=== PATIENT | male | born 1960 | race American Indian/Alaskan Native ===

== ENCOUNTER 2021-08-30 15:37 | Emergency (ER) | payer SELFPAY ==
[2021-08-30] MEDS ORDERED: NALOXONE 0.4 MG/1 ML INJ IV ONE (15:45)
[2021-08-30] MEDS ORDERED: ONDANSETRON 4 MG/2 ML INJ IV ONE (15:47)
--- NOTE | 2021-08-30 15:55 | Emergency Department Report ---
History of Present Illness - General Chief Complaint: Overdose Stated Complaint: OD Time Seen by Provider: 08/30/21 15:45 Source: patient, EMS Mode of arrival: Stretcher Limitations: No Limitations - History of Present Illness Initial Comments: Patient is 60 years old male with history of bipolar disorder. Patient brought to the emergency room via EMS from a local hotel for evaluation of accidental overdose. Patient was found by hotel staff. They stated that this is a second time in 2 days overdosing on heroin. Patient received intranasal Narcan with no improvement. Upon arrival to the ER patient is obtunded however he is responding to voice stimuli. Vital signs stable with an oxygen saturation of 100% on room air. MD Complaint: accidental overdose -: This morning How Overdose Was Discovered: other (Hotel staff.) Context: Accidental Overdose: wanted to get high Treatments Prior to Arrival: narcan - Related Data Allergies Allergy/AdvReac Type Severity Reaction Status Date / Time No Known Allergies Allergy Verified 08/30/21 15:42 ED Review of Systems ROS: Stated complaint: OD Other details as noted in HPI Comment: All other systems reviewed and negative Constitutional: denies: chills, fever Respiratory: denies: cough, shortness of breath, SOB with exertion Cardiovascular: denies: chest pain, palpitations Gastrointestinal: denies: abdominal pain, nausea, vomiting, diarrhea Musculoskeletal: denies: back pain Neurological: denies: headache, weakness, numbness, paresthesias, confusion Psychiatric: denies: depression, auditory hallucinations, visual hallucinations, homicidal thoughts, suicidal thoughts ED Physical Exam - General Limitations: No Limitations General appearance: obtunded - Head Head exam: Present: atraumatic, normocephalic, normal inspection - Eye Eye exam: Present: normal appearance - ENT ENT exam: Present: normal exam, normal orophraynx, mucous membranes moist - Neck Neck exam: Present: normal inspection, full ROM. Absent: tenderness, meningis mus - Respiratory Respiratory exam: Present: normal lung sounds bilaterally - Cardiovascular Cardiovascular Exam: Present: regular rate, normal rhythm, normal heart sounds - GI/Abdominal GI/Abdominal exam: Present: soft, normal bowel sounds. Absent: distended, tenderness, guarding, rebound, rigid, organomegaly, mass, bruit, pulsatile mass, hernia - Extremities Exam Extremities exam: Present: normal inspection, full ROM, normal capillary refill. Absent: tenderness, pedal edema, joint swelling, calf tenderness - Back Exam Back exam: Present: normal inspection, full ROM. Absent: CVA tenderness (R), CVA tenderness (L) - Neurological Exam Neurological exam: Present: alert, oriented X3, CN II-XII intact, normal gait, reflexes normal - Psychiatric Psychiatric exam: Present: normal mood. Absent: homicidal ideation, suicidal ideation - Skin Skin exam: Present: warm, intact, normal color ED Course Vital Signs 08/30/21 08/30/21 08/30/21 15:38 15:55 15:57 Temperature 98 F 98.2 F Pulse Rate 82 81 Respiratory 14 8 L Rate Blood Pressure Blood Pressure 131/80 [Left] O2 Sat by Pulse 96 99 99 Oximetry 08/30/21 08/30/21 08/30/21 16:01 16:15 16:31 Temperature Pulse Rate 81 89 83 Respiratory 11 L 8 L 8 L Rate Blood Pressure 117/57 117/57 Blood Pressure [Left] O2 Sat by Pulse 99 98 98 Oximetry 08/30/21 08/30/21 08/30/21 16:45 17:01 17:15 Temperature Pulse Rate 98 H 86 96 H Respiratory 18 13 19 Rate Blood Pressure 134/75 134/75 106/85 Blood Pressure [Left] O2 Sat by Pulse 100 100 100 Oximetry 08/30/21 08/30/21 08/30/21 17:31 17:45 18:01 Temperature Pulse Rate 93 H 93 H 101 H Respiratory 12 17 16 Rate Blood Pressure 134/65 146/67 133/67 Blood Pressure [Left] O2 Sat by Pulse 99 97 96 Oximetry 08/30/21 08/30/21 08/30/21 18:15 18:31 18:45 Temperature Pulse Rate 97 H 100 H 94 H Respiratory 15 13 14 Rate Blood Pressure 131/58 135/64 128/65 Blood Pressure [Left] O2 Sat by Pulse 98 96 96 Oximetry 08/30/21 19:01 Temperature Pulse Rate 94 H Respiratory 11 L Rate Blood Pressure 128/62 Blood Pressure [Left] O2 Sat by Pulse 95 Oximetry - Reevaluation(s) Reevaluation #1: 08/30/21 18:23 Patient received Narcan 2 mg IV. Patient is alert, oriented x3 in no acute distress. Vital signs stable with an oxygen saturation of 100% on room air. Reevaluation #2: 08/30/21 19:47 Patient is awake, alert and oriented x3. Patient is eating dinner and no acute distress and no difficulty. ED Medical Decision Making - Lab Data Result diagrams: 08/30/21 15:53 08/30/21 15:53 - Medical Decision Making Patient is 60 years old male with history of bipolar disorder. Patient brought to the emergency room via EMS from a local hotel for evaluation of accidental o verdose. Patient was found by hotel staff. They stated that this is a second time in 2 days overdosing on heroin. Patient received intranasal Narcan with no improvement. Upon arrival to the ER patient is obtunded however he is responding to voice stimuli. Vital signs stable with an oxygen saturation of 100% on room air. Patient received Narcan 2 mg IV and normal saline and Zofran. Patient stated that he is feeling better. Patient is alert, oriented x3 in no acute distress with an oxygen saturation of 100% on room air. This is after 3 hours since Narcan was given. Patient now is asking for food and stated that he wanted to go to the bathroom. Patient denied any suicidal ideation. He stated that he just wants to get high. he said he took what leftover from last time. Patient counseled about drug overdose and opiate abuse. Patient declined mental health evaluation. Critical care attestation.: If time is entered above; I have spent that time in minutes in the direct care of this critically ill patient, excluding procedure time. ED Disposition Clinical Impression: Accidental overdose, Opioid overdose Disposition: 01 HOME / SELF CARE / HOMELESS Is pt being admited?: No Condition: Stable Instructions: Accidental Drug Poisoning, Adult, Opioid Overdose Referrals: [facility] [Provider Group] - 3-5 Days
[2021-08-30 16:31] LABS: Alanine Aminotransferase 17 units/L (7-56); BUN/Creatinine Ratio 19; Blood Urea Nitrogen 19 mg/dL (9-20); Calcium 8.6 mg/dL (8.4-10.2); Hemolysis Index 19
[2021-08-30] MEDS ORDERED: NALOXONE 2 MG/2 ML INJ ONE (16:37)
[2021-08-30 16:38] LABS: Bilirubin,Direct < 0.2 mg/dL (0-0.2)
[2021-08-30 16:42] LABS: Basophils % (Auto) 0.3 % (0.0-1.8); Eosinophils # (Auto) 0.1 K/mm3 (0.0-0.4); Eosinophils % (Auto) 1.8 % (0.0-4.3); Hematocrit 36.7 % (35.5-45.6); Hemoglobin 12.1 gm/dl (11.8-15.2); Lymphocytes # (Auto) 1.4 K/mm3 (1.2-5.4); Lymphocytes % (Auto) 34.4 % (13.4-35.0); Mean Corpuscular HGB Conc 33 % (32-34); Mean Corpuscular Volume 93 fl (84-94); Monocytes # (Auto) 0.4 K/mm3 (0.0-0.8); Monocytes % (Auto) 10.6 % (0.0-7.3); Platelet Count 176 K/mm3 (140-440); Red Blood Count 3.95 M/mm3 (3.65-5.03); Red Cell Distribution Width 13.6 % (13.2-15.2)
[2021-08-30] MEDS ORDERED: SODIUM CHLORIDE 0.9% 1000 ML 1,000 ML IV ONE (17:26)
--- NOTE | 2021-08-30 22:44 | Emergency Department Report ---
Blank Doc - Documentation Documentation: Patient was being observed after accidental opioid overdose. He did not require further dosing of Narcan. He was discharged as previously written.
[2021-08-30 23:17] VITALS: BP 130/86
== END 2021-08-30 23:16 | disposition home or self-care (01) ==
LOC: ED 15:37
DX: T40.2X1A Poisoning by other opioids, accidental (unintentional), initial encounter (principal); Y92.89 Other specified places as the place of occurrence of the external cause
CPT/HCPCS: 36415; 80048; 80076; 85025; 96361; 96374; 96375; 99284; J2310; J2405; J7030; 80320; Q0162; G0480